=== PATIENT | male | born 1990 | race Caucasian/White ===

== ENCOUNTER 2021-10-22 16:07 | Emergency (ER) | payer SELFPAY ==
[2021-10-22] MEDS ORDERED: BUPIVACAINE 0.5% PF 10 ML VIAL ONE (17:04)
[2021-10-22] MEDS ORDERED: TETANUS & DIPHTHERIA TOX,ADULT 0.5 ML VIAL ONE (17:52)
[2021-10-22 20:09] VITALS: BP 112/80; TEMP 98.6; O2SAT 100
--- OUTSIDE RECORDS SUMMARY | 2021-10-23 10:56 | XMS REPORT | Continuity of Care Document ---
:1990 Author Organization [facility] t Address [address] [place] [address] [facility]. [address] [place] [address] Care Team Providers Name Role Phone ARMANDO DUNCAN Attending Clinician Unavailable Problems This patient has no known problems. Allergies, Adverse Reactions, Alerts This patient has no known allergies or adverse reactions. Medications This patient has no known medications. Procedures This patient has no known procedures. Encounters Start End Encounter Admission Attending Care Care Encounter Source Date/Time Date/Time Type Type Clinicians Facility Department ID 2020-05-02 2020-05-02 Emergency ARMANDO DUNCAN [facility] [id number] [place] 00:00:00 00:00:[address] Results This patient has no known results.
--- NOTE | 2021-10-24 09:42 | ER ---
Nurse's Notes [facility] Name: Rajan Jurado Age: 31 yrs Sex: Male : 1990 Arrival Date: 10/22/2021 Time: 16:10 Bed 23 Private MD: Diagnosis: Finger Laceration Presentation: 10/22 16:44 Chief complaint: Patient states: pt reports working on a car and cut right middle balderas finger. Coronavirus screen: Vaccine status: Patient reports being unvaccinated. Ebola Screen: Patient denies travel to an Ebola-affected area in the 21 days before illness onset. Initial Sepsis Screen: Does the patient meet any 2 criteria? No. Patient's initial sepsis screen is negative. Does the patient have a suspected source of infection? No. Patient's initial sepsis screen is negative. Risk Assessment: Do you want to hurt yourself or someone else? Patient reports no desire to harm self or others. Onset of symptoms was October 22, 2021. 16:44 Method Of Arrival: Ambulatory balder[place] 16:44 Acuity: AKIL 4 balder[place] Historical: - Allergies: 16:46 No Known Allergies; balder[place] - Home Meds: 16:46 None [Active]; [place]der[place] - PMHx: 16:46 None; [place] - PSHx: 16:46 None; balder[place] - Immunization history:: Adult Immunizations up to date, Last tetanus immunization: unknown. - Social history:: Smoking status: Reported history of juuling and/or vaping. Screenin:49 Abuse screen: Denies threats or abuse. Denies injuries from another. Nutritional ss screening: No deficits noted. Tuberculosis screening: Never had TB. Fall Risk None identified. Assessment: 17:49 Reassessment: Pt denies pain after digital block performed by LATASHA Eaton. General: ss Appears in no apparent distress. comfortable, Behavior is calm, cooperative. Neuro: Level of Consciousness is awake, alert, obeys commands, Oriented to person, place, time, situation. Cardiovascular: Capillary refill < 3 seconds is brisk in bilateral fingers. Respiratory: Respiratory effort is even, unlabored. Derm: Skin is pink, warm \T\ dry. normal. Injury Description: Injury Description: Laceration sustained to palmar aspect of middle phalanx of right middle finger. Vital Signs: 16:44 BP 112 / 80; Pulse 91; Resp 19; Temp 98.6(T); Pulse Ox 100% ; Weight 56.7 kg; Height 5 balderas ft. 6 in. (167.64 cm); 16:44 Body Mass Index 20.18 (56.70 kg, 167.64 cm) balder[place] ED Course: 16:10 Patient arrived in ED. am2 16:11 Angelito Nunes PA is PHCP. balder[place] 16:11 Jonn Holliday MD is Attending Physician. balder[place] 16:45 Triage completed. balderas 17:48 Patricia Sánchez, ALANNA is Primary Nurse. ss 17:49 Patient has correct armband on for positive identification. Bed in low position. ss 17:49 Assist provider with laceration repair on palmar aspect of middle phalanx of right ss middle finger that was 2.5 cm. or less using sutures. Set up tray. Performed by Angelito PAGAN Dressed with Demi, Patient tolerated well. Patient did not have IV access during this emergency room visit. Administered Medications: 17:48 Drug: Tetanus-Diphtheria Toxoid Adult 0.5 ml {[employer]: [employer]. Exp: ss 07/28/2023. Lot #: [id number]. } Route: IM; Site: right deltoid; 18:29 Follow up: Response: (VIS) Vaccine information sheet provided today. Questions and/or ss concerns addressed. VIS edition date: Oct 27, 2020.; No adverse reaction Medication: 17:49 Vaccine Information Statement (VIS) provided today. Questions and/or concerns ss addressed. VIS edition date: October 2021. Outcome: 18:22 Discharge ordered by MD. bailey 18:29 Discharged to home ambulatory. ss 18:29 Condition: good 18:29 Discharge instructions given to patient, Instructed on discharge instructions, follow up and referral plans. wound care, Demonstrated understanding of instructions, follow-up care. 18:30 Patient left the ED. ss Signatures: Angelito Nunes PA PA jmm Smirch, Shelby, ALANNA MONDRAGON Roxie Perdomo 2 Au-StagerClaudia RN RN
--- NOTE | 2021-10-24 09:42 | EDPHYS ---
Physician Documentation [facility] Name: Rajan Jurado Age: 31 yrs Sex: Male : 1990 Arrival Date: 10/22/2021 Time: 16:10 Bed 23 Private MD: ED Physician Jonn Holliday Historical: - Allergies: 10/22 16:46 No Known Allergies; balderas - Home Meds: 16:46 None [Active]; [place] - PMHx: 16:46 None; [place] - PSHx: 16:46 None; balder[place] - Immunization history:: Adult Immunizations up to date, Last tetanus immunization: unknown. - Social history:: Smoking status: Reported history of juuling and/or vaping. Vital Signs: 16:44 BP 112 / 80; Pulse 91; Resp 19; Temp 98.6(T); Pulse Ox 100% ; Weight 56.7 kg; Height 5 balderas ft. 6 in. (167.64 cm); 16:44 Body Mass Index 20.18 (56.70 kg, 167.64 cm) balderas MDM: 17:02 Patient medically screened. [facility] 18:21 Data reviewed: vital signs, nurses notes. Counseling: I had a detailed discussion with leo the patient and/or guardian regarding: the historical points, exam findings, and any diagnostic results supporting the discharge/admit diagnosis, radiology results, the need for outpatient follow up, to return to the emergency department if symptoms worsen or persist or if there are any questions or concerns that arise at home. Administered Medications: 17:48 Drug: Tetanus-Diphtheria Toxoid Adult 0.5 ml {[employer]: [employer]. Exp: ss 07/28/2023. Lot #: [id number]. } Route: IM; Site: right deltoid; 18:29 Follow up: Response: (VIS) Vaccine information sheet provided today. Questions and/or ss concerns addressed. VIS edition date: Oct 27, 2020.; No adverse reaction Disposition Summary: 10/22/21 18:22 Discharge Ordered Location: Home [facility] Condition: Stable [facility] Diagnosis - Finger Laceration candace Followup: candace - With: Private Physician - When: 2 - 3 days - Reason: Recheck today's complaints, Continuance of care, Re-evaluation by your physician Discharge Instructions: - Discharge Summary Sheet jmm - Laceration Care, Adult [facility] Forms: - Medication Reconciliation Form jmm - Thank You Letter jmm - Antibiotic Education [facility] - Prescription Opioid Use [facility] Addendum: 10/23/2021 19:46 Co-signature as Attending Physician, Jonn Holliday MD. r n Signatures: Angelito Nunes PA PA jmm Nieto, Roman, MD MD rn Smirch, Shelby, RN RN Claudia Lackey RN RN balder[place]
== END 2021-10-22 18:30 | disposition home or self-care (01) ==
LOC: ER 16:07
PROC: 0JQJ0ZZ Repair Right Hand Subcutaneous Tissue and Fascia, Open Approach (ICD-10-PCS; principal; 2021-10-22)
DX: S61.212A Laceration without foreign body of right middle finger without damage to nail, initial encounter (principal); Z23 Encounter for immunization
CPT/HCPCS: 90471; 90714; 99283